=== PATIENT | female | born 1995 | race Hispanic/Latino ===

== ENCOUNTER 2019-09-12 23:25 | Emergency (ER) | payer SELFPAY ==
[2019-09-13] MEDS ORDERED: Acetaminophen 500 MG TAB ONE (00:07)
== END 2019-09-13 00:20 | disposition home or self-care (01) ==
LOC: ERS 23:25
DX: J10.1 Influenza due to other identified influenza virus with other respiratory manifestations (principal)
CPT/HCPCS: 87804; 99283

== ENCOUNTER 2020-07-21 15:02 | Inpatient (IN) | payer SELFPAY ==
[2020-07-21] MEDS ORDERED: hydrALAZINE 20 MG/ML VIAL SLOW IVP PRN (15:35)
--- NOTE | 2020-07-21 16:28 | ULT ---
US Gallbladder RUQ History: Right upper quadrant pain. 32 weeks Comparison: None. Findings: Real-time grayscale and color evaluation right upper quadrant of the abdomen was performed. Mild diffuse increased hepatic echotexture. Portal vein is patent antegrade flow. Common bile duct is normal measuring 3 mm. No cholelithiasis or cholecystitis. Right kidney measures 9.2 x 5 x 5 cm with mild right hydronephros is. heart rate documented at 173 bpm. Impression: Mild right-sided hydronephrosis. No cholelithiasis or cholecystitis.
[2020-07-21 16:38] LABS: #Lymphocytes 0.6 thou/uL (1.20-3.40); #Monocytes 0.3 thou/uL (0.11-0.59); #Neutrophils 5.8 thou/uL (1.40-6.50); %Basophils 0.2 % (0.0-1.0); %Eosinophils 0.1 % (0.0-10.0); %Lymphocytes 9.1 % (21.0-51.0); %Monocytes 4.1 % (0.0-10.0); %Neutrophils 86.5 % (42.0-75.0); Hemoglobin 11.3 g/dL (12.0-16.0); Mean Corpuscular HGB CONC 34.2 g/dL (32.0-36.0); Mean Corpuscular Hemoglobin 30.7 pg (27.0-31.0); Mean Corpuscular Volume 89.7 fL (78.0-98.0); Mean Platelet Volume 6.6 fL (7.4-10.4); Platelet Count 226 thou/uL (130-400); RBC Distribution Width 11.2 % (11.5-14.5); Red Blood Cell (RBC) Count 3.69 mill/uL (4.20-5.40); White Blood Cell (WBC) Count 6.7 thou/uL (4.8-10.8)
[2020-07-21 16:42] LABS: Bacteria/HPF None Seen HPF (None Seen); Bilirubin Negative (Negative); Blood, Urine Negative (Negative); Clarity Clear (Clear); Glucose, Urine (Dipstick) Normal (Negative); Ketone, Urine Negative (Negative); Leukocyte Negative Leu/uL (Negative); Nitrite Negative (Negative); Protein, Urine (Dipstick) 10 mg/dL (Neg-Trace); RBC/HPF None Seen HPF (0-3); Specific Gravity, Urine 1.012 (1.002-1.036); Squamous Epithelial 0-3 HPF (0-3); WBC/HPF 0-3 HPF (0-3)
[2020-07-21 16:43] LABS: Urine Culture Reflex No No
[2020-07-21 16:51] VITALS: BMI 19.3
[2020-07-21] MEDS ORDERED: Acetaminophen 500 MG TAB PO SCH (17:00)
[2020-07-21 17:01] LABS: ALT (SGPT) 14 U/L (8-55); AST (SGOT) 31 U/L (5-34); Albumin 3.3 g/dL (3.5-5.0); Alkaline Phosphatase 170 U/L (40-110); Anion Gap 14 mmol/L (10-20); BUN (Urea Nitrogen) 4 mg/dL (7.0-18.7); Bilirubin, Total 0.8 mg/dL (0.2-1.2); Calc. Creatinine Clearance 84 mL/min (70-130); Calcium 8.3 mg/dL (7.8-10.44); Carbon Dioxide 17 mmol/L (22-29); Chloride 106 mmol/L (98-107); Estimated GFR-MDRD Greater than 90; Globulin 3.6 g/dL (2.4-3.5); Glucose 109 mg/dL (70-105); Potassium 3.6 mmol/L (3.5-5.1); Protein, Total 6.9 g/dL (6.0-8.3); Sodium 133 mmol/L (136-145)
--- NOTE | 2020-07-21 17:01 | PDOC.LDHP ---
Labor and Delivery H&P Chief complaint: abdominal pain HPI: 24 y/o at 30w1d, patient of Dr. Montoya, presents with abdominal pain since 9am. Pain constant and diffuse, but worse in RUQ. She also has felt chills, shortness of breath, and overall discomforts. She had COVID-19 about 6 months ago. Also received a flu shot. Denies VB, LOF, ctx, or decreased FM. ROS neg for HEENT, CV, pulm, gi, gu, neuro, psych, skin, musculoskeletal or constitutional symptoms other than mentioned above. OB History Details: 2 prior term SVDs Current complications: none Past Medical History: None Current medications: pre-rodolfo vitamins Previous surgical history: none Allergies/Adverse Reactions: Allergies Allergy/AdvReac Type Severity Reaction Status Date / Time No Known Allergies Allergy Unverified 07/21/20 16:18 Social history: none - Physical Exam Abnormal vital signs: tachycardia, tachypnea, febrile at 102.9 General: other (appears ill) Heart: other (tachycardic) Lungs: other (coarse breath sounds) Abdomen: other (gravid, diffusely TTP) Extremeties: no edema FHT: category 2 (190s, mod variability, + accels, no decels) [place] contractions every: None - Assessment 24 y/o at 30w1d with sepsis of unknown origin. status reassuring at this time. - Plan -: Admit for sepsis workup CBC, CMP, UA, lactic acid, blood cultures x 2; COVID-19, Influenza swabs pending RUQ ultrasound normal - no e/o cholecystitis, physiologic hydronephrosis. Tylenol for fever. Dr. Montoya notified. Will continue to closely monitor.
[2020-07-21 17:27] LABS: Lactic Acid 2.2 mmol/L (0.5-2.2)
[2020-07-21] MEDS: Piperacillin/Tazobactam 3.375 GM in Sodium Chloride 0.9% 100 ML IVPB SCH (18:26)
[2020-07-21 18:39] LABS: SARS-CoV-2 NAA Rapid Test Not Detected (NotDetected)
[2020-07-21] MEDS: Vancomycin HCl 750 MG in Sodium Chloride 0.9% 250 ML 250 ML IVPB SCH (20:37)
--- NOTE | 2020-07-21 20:46 | PDOC.BPN ---
- Brief Progress Note Encounter Date: 07/21/20 Encounter Time: 20:44 All tests so far are negative for a source of infection. Patient with neck and back pain. Febrile again and tachycardic. Will get chest x-ray and consult medicine for further evaluation of sepsis.
--- NOTE | 2020-07-21 21:09 | RAD ---
RADIOGRAPH CHEST 2 VIEWS: DATE: 07/21/2020 HISTORY: 24-year-old female with sepsis and dyspnea FINDINGS: There is no airspace density, pulmonary edema, pleural effusion, pneumothorax, or cardiomegaly. IMPRESSION: No acute cardiopulmonary findings.
[2020-07-21] MEDS ORDERED: Lactated Ringer's 1,000 ML IV SCH (22:00)
[2020-07-21] MEDS ORDERED: diphenhydrAMINE 50 MG/ML VIAL IVP SCH (22:30)
[2020-07-21] MEDS: Betamet Acet/Betamet Na Ph 30 MG/5 ML VIAL IM SCH (22:41)
[2020-07-21] MEDS: Acetaminophen 500 MG TAB PO SCH (22:41)
[2020-07-21] MEDS: Lactated Ringer's 1,000 ML IV SCH (22:49)
[2020-07-21] MEDS ORDERED: metroNIDAZOLE 500 MG TAB PO SCH (23:30)
[2020-07-22] MEDS: Piperacillin/Tazobactam 3.375 GM in Sodium Chloride 0.9% 100 ML IVPB SCH ×4 (00:15→19:15)
[2020-07-22 01:06] LABS: Lactic Acid 2.5 mmol/L (0.5-2.2)
[2020-07-22] MEDS: Acetaminophen 500 MG TAB PO SCH ×2 (04:27→10:02)
[2020-07-22] MEDS: Lactated Ringer's 1,000 ML IV SCH (05:21)
[2020-07-22 07:10] LABS: Lactic Acid 1.7 mmol/L (0.5-2.2)
--- NOTE | 2020-07-22 07:14 | PDOC.BPN ---
- Brief Progress Note Encounter Date: 07/22/20 Encounter Time: 06:59 Patient was comfortable for the last few hours but has started complaining of neck pain again. Abdominal pain has improved. No other complaints. Tachycardia improved around 2am. O: Vital Signs - Most Recent BP: 89/51 P: 94 R: 20 T: 97.8 Gen - AAO, NAD Heart - RRR Pulm - CTAB, no wheezes, rales, or rhonchi Abd - gravid, soft, NTTP Neck - tender to palpation and movement Labs - Lactic Acid - 2.2 --> 2.5 --> pending CBC - repeat pending A/P: 24 y/o at 30w2d with infection of unknown source. Vital signs are improving, no longer tachycardic or tachypneic. 1. Sound consulted - spoke with Dr. Olson, no recommendations. 2. Repeat labs pending 3. NST reactive 4. Celestone x 1, next dose tonight 5. Continue to monitor.
[2020-07-22 07:30] LABS: Hemoglobin 9.5 g/dL (12.0-16.0); Mean Corpuscular HGB CONC 36.1 g/dL (32.0-36.0); Mean Corpuscular Hemoglobin 32.6 pg (27.0-31.0); Mean Corpuscular Volume 90.4 fL (78.0-98.0); Mean Platelet Volume 6.5 fL (7.4-10.4); Platelet Count 169 thou/uL (130-400); RBC Distribution Width 11.4 % (11.5-14.5); White Blood Cell (WBC) Count 14.9 thou/uL (4.8-10.8)
--- NOTE | 2020-07-22 07:48 | ULT ---
PRELIMINARY REPORT/[facility]/EMERGENCY AFTER HOURS PROCEDURE: EXAM: US Biophysical Profile Without Non-Stress Testing. CLINICAL HISTORY: tachycardia, fever TECHNIQUE: Real-time ultrasound of the maternal pelvis for biophysical profile evaluation with image documentation. COMPARISON: None provided. FINDINGS: Single live intrauterine gestation is noted with a vertex presentation and an anterior plac enta demonstrating a heartbeat of 133 bpm. The JOSE is 9.8 cm BREATHING MOVEMENTS: Score 2/2. BODY MOVEMENTS: Score 2/2. TONE: Score 2/2. QUALITATIVE AMNIOTIC FLUID VOLUME: Within normal limits. 2/2. IMPRESSION: Normal biophysical profile, 04/11. ELECTRONICALLY SIGNED BY: Sal Brooks MD Jul 22, 2020 12:46:59 AM IMAGING CENTER MANAGER FINAL REPORT NONSTRESS BIOPHYSICAL PROFILE: HISTORY: Fever. tachycardia. COMPARISON: None. TECHNIQUE: Nonstress biophysical profile was performed. FINDINGS: Presentation: Vertex. Placenta: Anterior. heart tones: 133 bpm. Amniotic fluid index 9.8 cm. Nonstress biophysical profile: tone 2. breathing 2. movement 2. Amniotic fluid 2. Total score 8 out of 8. IMPRESSION: 1. This report is in agreement with initial report by [facility]. 2. Nonstress biophysical profile score is 8 out of 8. Transcribed Date/Time: 07/22/2020 8:02 AM
[2020-07-22] MEDS ORDERED: Lidocaine 2% 10 ML INJ ONE (08:26)
[2020-07-22 08:30] LABS: Band 57 % (5-11); Lymphocytes 6 % (21-51); MDiff Complete? YES; Metamyelocyte 1 % (0-0); Monocytes 2 % (0-10); Neutrophil 34 % (42-75); Platelet Morphology Comment Appears Adequate; Polychromasia SLIGHT = 2-3 cells (100X) (0-2/hpf); Reflex for Review?? NO; Vacuoles SLIGHT
[2020-07-22] MEDS: Vancomycin HCl 750 MG in Sodium Chloride 0.9% 250 ML 250 ML IVPB SCH ×2 (09:53→20:59)
[2020-07-22] MEDS: metroNIDAZOLE 500 MG TAB PO SCH ×2 (10:02→20:55)
--- NOTE | 2020-07-22 10:36 | PDOC.BPN ---
- Brief Progress Note Encounter Date: 07/22/20 Encounter Time: 10:00 Care was transitioned to our service this am after the patient was determined to be a PNC patient managed by Dr. Moyer. HPI: Patient is a at 30.1wk who presents to L&D triage with complains of frontal headache not worsened by light/noise that radiates down the neck to mid back for the past 2 days. The patient notes a history of fever, chills, fatigue, sternal chest pain worsened with deep breaths that radiates to back, and epigastric/RUQ pain for the past day. Patient has been treating at home with Tylenol. She reports a history of cold sores on the lip with most recent episode occurring 1 week ago, now resolved. She also reports an episode of watery diarrhea and epigastric pain occurring 1 week ago, now resolved, after eating questionable food. She notes dysuria and "grainy feeling" with urination but denies vaginal burning, vaginal pain, vaginal bleeding and vaginal discharge. + FM. No LOF. 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 Surgeries: None FHx: None Physical exam: General: resting comfortably on left side, no acute distress HEENT: PERRL, no facial rash present, TM clear with light reflex, tonsils edematous and erythematous without exudate present Neck: Tender to light touch, no elicitation of pain with movement of neck Throat: anterior edema without palpable lymph nodes, tender to palpation Chest: Nontender Cardiac: RRR, no murmur/rub/gallop Respiratory: Clear to auscultation, no wheezing/crackles, no respiratory distress Abdomen: epigastric and RUQ tenderness, upper uterine tenderness; both with light touch of the skin Genitourinary: Shaved. No lesions present on labia. Speculum exam completed. No vaginal lesions noted. [place] vaginal mucosa with white, clumpy discharge present. Cervix closed, no erythema present. Back: Tenderness to light touch of the skin along spine Extremities: No LE edema Skin: No rash present monitoring: FHT 130s, + accels, no decels, moderate variability Assessment/Plan: Patient presented to triage febrile with tachycardia in 160s and tachypnea in 40s. BP 90s/40s. Tachycardia and tachypnea have now resolved. Initial workup has not revealed source of infection. WBC 14.9 this am, from 6.7; likely elevated due to 1 dose of steroids. LA downtrending from 2.5. UA negative. Flu negative. CXR negative. RUQ negative for cholelithiasis or cholecystitis. + sally and BV on VP3. Given 6 L of fluids over past 24 hours, currently on LR @ 125 for maintanence. Receiving zosyn (07/21), vanc (07/21) and flagyl (07/22). BCx pending. LP completed this am. Will order CSF studies for protein, glucose, cell count, gram stain and CSF culture. Will also order HSV 1/2, cryptococcus, TB and toxoplasmosis study to investigate possible viral vs. fungal meningitis. Will obtain procal, mononucleosis test and HSV IgM/IgG. Continue current antibiotic regiment. No need for additional medications at this time. Continue Tylenol for fever/pain. Continue continuous monitoring. Will complete celestone course this evening with 2nd dose. F/u blood cultures, prelim negative. Discussed plan with Dr. Good.
[2020-07-22 10:42] LABS: CSF, Glucose 48 mg/dl (40-70); CSF, Protein 21 mg/dL (15-40)
[2020-07-22 11:12] LABS: Color Of CSF Supernatant COLORLESS (Colorless); Tube # 1; Unspun CSF Color COLORLESS (Colorless)
[2020-07-22 11:26] LABS: CSF Source CSF; Clarity Hazy (Clear); Tube # 4
[2020-07-22 11:46] LABS: MONO NEGATIVE CONTROL ZONE White (Negative) (White); MONO POSITIVE CONTROL Pink Line (Positive) (PINK/RED); Mononucleosis NEGATIVE (NEGATIVE)
[2020-07-22 12:00] LABS: Cell Count Non Hematic 22 %; Lymphocytes 2 %; Segmented Neutrophils 76 %
[2020-07-22 13:03] LABS: CSF Source CSF; Clarity Clear (Clear); Tube # 3
[2020-07-22] MEDS: Betamet Acet/Betamet Na Ph 30 MG/5 ML VIAL IM SCH (22:45)
[2020-07-23] MEDS: Piperacillin/Tazobactam 3.375 GM in Sodium Chloride 0.9% 100 ML IVPB SCH ×3 (01:39→12:08)
[2020-07-23] MEDS: Acetaminophen 500 MG TAB PO SCH ×4 (04:17→11:17)
--- NOTE | 2020-07-23 07:05 | PDOC.OBAPN ---
FMR OB AP PN: Sub - Interval History Hospital Day: 2 Chief Complaint: fever Indentification: 24yo @ 30.3 by 20.3wk sono Interval History: SALVADOR resolved,Mild epigastric pain,Tolerating PO,no n/v. Pleuritic CP,no SOB FMR OB AP PN: Obj - Maternal Vital signs: BP: 93/56 HR: 93 RR: 20 Tmax: 97.7 Pox: 99% on RA Wt: 39kg - Heart Tones Baseline: 120 Variability: moderate Acceleration: present Deceleration: absent Category: category 1 [place] contractions every: 6min FMR OB AP PN: Exam - Physical Exam General: NAD, awake, alert and oriented HEENT: normocephalic and atraumatic, EOMI, MMM, conjunctiva clear Neck: supple, trachea midline Chest: other (mild tenderness to palpation) Heart: RRR, normal S1/S2, no murmurs/rubs/gallops, pulses present, no edema General: CTAB, no respiratory distress, good air movement, no rales/rhonchi, no wheezing, no retractions Abdomen: soft, gravid, bowel sound present, other (mild epigastric tenderness) Musculoskeletal: other (mild lumbar spinal tenderness to palpation) Neurological: no focal deficit Skin: no rash Psychiatric: normal mood and affect FMR OB AP PN: Data - Labs Lab results: Laboratory Results - last 24 hr 07/22/20 07/22/20 07/22/20 06:48 06:48 09:10 WBC 14.9 H RBC 2.90 L Hgb 9.5 L Hct 26.2 L MCV 90.4 MCH 32.6 H MCHC 36.1 H RDW 11.4 L Plt Count 169 MPV 6.5 L Neutrophils % (Manual) 34 L Band Neuts % (Manual) 57 H Lymphocytes % (Manual) 6 L Monocytes % (Manual) 2 Metamyelocytes % (Man) 1 H WBC Morphology SLIGHT Plt Morphology Comment Appears Adequate Polychromasia SLIGHT = 2-3 cells Lactic Acid 1.7 Procalcitonin Fluid Source Fluid Tube Number Fluid Color Fluid Clarity Fluid Seg Neutrophil % Fluid Lymphocytes % Non-Hematological % CSF Tube Number 1 CSF Color COLORLESS CSF Supernatant Color COLORLESS CSF RBC (Auto) CSF Total Nucleated Auto CSF Glucose 48 CSF Total Protein 21 Monoscreen 07/22/20 07/22/20 07/22/20 09:10 09:10 11:33 WBC RBC Hgb Hct MCV MCH MCHC RDW Plt Count MPV Neutrophils % (Manual) Band Neuts % (Manual) Lymphocytes % (Manual) Monocytes % (Manual) Metamyelocytes % (Man) WBC Morphology Plt Morphology Comment Polychromasia Lactic Acid Procalcitonin 5.37 Fluid Source CSF CSF Fluid Tube Number 4 3 Fluid Color [place] H Colorless Fluid Clarity [place] H Clear Fluid Seg Neutrophil % 76 H* Fluid Lymphocytes % 2 Non-Hematological % 22 CSF Tube Number CSF Color CSF Supernatant Color CSF RBC (Auto) 5949 3 CSF Total Nucleated Auto 18 2 CSF Glucose CSF Total Protein Monoscreen 07/22/20 11:33 WBC RBC Hgb Hct MCV MCH MCHC RDW Plt Count MPV Neutrophils % (Manual) Band Neuts % (Manual) Lymphocytes % (Manual) Monocytes % (Manual) Metamyelocytes % (Man) WBC Morphology Plt Morphology Comment Polychromasia Lactic Acid Procalcitonin Fluid Source Fluid Tube Number Fluid Color Fluid Clarity Fluid Seg Neutrophil % Fluid Lymphocytes % Non-Hematological % CSF Tube Number CSF Color CSF Supernatant Color CSF RBC (Auto) CSF Total Nucleated Auto CSF Glucose CSF Total Protein Monoscreen NEGATIVE FMR OB AP PN: A/P - Problem List (1) Status: Acute (2) Sepsis Status: Acute Code(s): A41.9 - SEPSIS, UNSPECIFIED ORGANISM Disposition: 24yo @ 30.3 by 20.3wk gabriella presents for sepsis due to unknown source #Sepsis 2/2 unknown source - UA clean, BCx NGTD - CSF glucose 48, protein 21, WBC 18, Gram stain negative - Cryptococcus negative, mono negative, covid/flu negative - Toxo PCR, HSV PCR, HSV IgG and IgM, Enterovirus, and CSF Cx Pending - Ruled out meningitis, UTI, PNA. Low suspicion for bacteremia - RVP ordered for today, suspect likely viral URI vs gastroenteritis with h/o GI sxs last week (since resolved) - mild chest pain this morning, MSK, reproducible - HR stable, O2 stable, no history of recent travel/immobilization and no history of VTE - low suspicion for PE, encouraged ambulation and will monitor - On Vanc and Zosyn, will continue until cultures negative at 48 hours. - Procal 5.37 - Am labs pending #BV - On flagyl #Deepika vulvovaginitis - Will start monostat after d/c of abx #History of HSV oral lesions - states ulcers last week, since resolved - checking antibodies - CSF studies negative for viral meningitis however PCR pending #SIUP - BPP 04/11 at admission, Cat 1 FHT - Ctx q6min, feels about q10min - s/p Betamethasone x2 for lung protection - cont monitoring PCP: [facility] - [facility] IVF: LR @ 125cc/hr - will d/c VTE: SCDs/Ambulation Dispo: Pending cultures. Suspect viral. Will d/c antibiotics at 48 hours if no source identified and monitor. Suspect discharge next 1-2 days pending clinical course. Discussion: Date/Time: 07/23/20 0703 This H&P was discussed with Dr. Good who agrees with the above documentation and plan. Addendum - Attending - Attending Attestation Date/Time: 07/24/20 174 I personally evaluated the patient and discussed the management with Dr. Watts I agree with the History, Examination, Assessment and Plan documented above with any addition or exceptions noted below. PT doing better this AM. Reports headache and neck pain has resolved. She continues to have muscle aches in chest, mid back , and abdomen. Pt remains afebrile with normal vitals on abx. labs pending. Viral syndrome suspected.
[2020-07-23 08:40] LABS: #Lymphocytes 1.4 thou/uL (1.20-3.40); #Monocytes 0.3 thou/uL (0.11-0.59); #Neutrophils 13.6 thou/uL (1.40-6.50); %Basophils 0.1 % (0.0-1.0); %Eosinophils 0.1 % (0.0-10.0); %Lymphocytes 8.9 % (21.0-51.0); %Monocytes 1.6 % (0.0-10.0); %Neutrophils 89.3 % (42.0-75.0); Hemoglobin 8.6 g/dL (12.0-16.0); Mean Corpuscular HGB CONC 33.4 g/dL (32.0-36.0); Mean Corpuscular Volume 92.7 fL (78.0-98.0); Mean Platelet Volume 7.2 fL (7.4-10.4); Platelet Count 163 thou/uL (130-400); RBC Distribution Width 11.6 % (11.5-14.5); Red Blood Cell (RBC) Count 2.76 mill/uL (4.20-5.40); White Blood Cell (WBC) Count 15.2 thou/uL (4.8-10.8)
[2020-07-23 09:02] LABS: ALT (SGPT) 33 U/L (8-55); AST (SGOT) 67 U/L (5-34); Albumin 2.7 g/dL (3.5-5.0); Alkaline Phosphatase 125 U/L (40-110); Anion Gap 13 mmol/L (10-20); BUN (Urea Nitrogen) 9 mg/dL (7.0-18.7); Bilirubin, Total 1.7 mg/dL (0.2-1.2); Calc. Creatinine Clearance 88 mL/min (70-130); Calcium 8.4 mg/dL (7.8-10.44); Carbon Dioxide 17 mmol/L (22-29); Chloride 112 mmol/L (98-107); Estimated GFR-MDRD Greater than 90; Globulin 2.9 g/dL (2.4-3.5); Glucose 101 mg/dL (70-105); Potassium 3.7 mmol/L (3.5-5.1); Protein, Total 5.6 g/dL (6.0-8.3); Sodium 138 mmol/L (136-145)
[2020-07-23] MEDS: Vancomycin HCl 750 MG in Sodium Chloride 0.9% 250 ML 250 ML IVPB SCH (09:19)
[2020-07-23] MEDS ORDERED: Calcium Carbonate 500 MG ChewTAB PO PRN (09:37)
[2020-07-23] MEDS: metroNIDAZOLE 500 MG TAB PO SCH ×2 (09:42→22:45)
[2020-07-23 09:59] LABS: Iron 11 ug/dL (50-170); Iron Binding Capacity, Total 466 mcg/dL (265-497)
[2020-07-23] MEDS: Lactated Ringer's 1,000 ML IV SCH ×3 (11:18→14:45)
--- NOTE | 2020-07-23 11:42 | PDOC.BPN ---
- Brief Progress Note Encounter Date: 07/23/20 Encounter Time: 11:40 Called by antepartum nurse that pt was having ctx. Came and examined pt at bedside. Chest pain resolved. No SALVADOR, vision changes, SOB, n/v. Good movement. No vaginal bleeding or LOF. Ctx q3-4min on FHT. Cat 1 with accels, no deccels, baseline 110. Feeling more pressure. SVE closed/thick/high. Will restart IVF @ 100cc/hr. Transfer back to L&D for monitoring and continuous FHT. Above plan discussed with Dr. Fontenot who agreed with plan.
[2020-07-23 14:12] VITALS: BP 101/59; TEMP 97.7
[2020-07-23] MEDS ORDERED: Acetaminophen 325 MG TAB PO PRN (15:52)
--- NOTE | 2020-07-23 15:56 | PDOC.BPN ---
- Brief Progress Note Encounter Date: 07/23/20 Encounter Time: 15:53 Reviewed studies resulted thus far. BCx NG @ 48 hours. CSF gram stain negative, Cx NG at 24 hours. RVP negative. Procal trending down. No source of bacterial infection. Likely viral gastroenteritis vs URI. Patient resting comfortably and overall improved. Ctx have stopped since transfer back to L&D. Cat 1 strip with accels, no deccels, no ctx, moderate variability, baseline 120. Will d/c vanc and zosyn. Change tylenol to prn. Cont to monitor for worsening of sxs or recurrence of fever. Plan discussed with patient at bedside who voiced understanding and agreement. Above plan discussed with Dr. Fontenot who agreed with plan.
[2020-07-23 17:55] LABS: Amphetamine Not Detected (NotDetected); Barbiturates Screen Not Detected (NotDetected); Benzodiazepine Screen Not Detected (NotDetected); Cocaine Metabolite Screen Not Detected (NotDetected); Medtox Control Line Valid? VALID (VALID); Medtox Reader # READER 1; Methadone Not Detected (NotDetected); Methamphetamine Not Detected (NotDetected); Opiate Screen Not Detected (NotDetected); Oxycodone Screen Not Detected (NotDetected); Phencyclidine (PCP) Not Detected (NotDetected); THC/Cannabinoid Screen Not Detected (NotDetected); Tricyclic Screen Not Detected (NotDetected)
[2020-07-24 06:51] LABS: #Lymphocytes 1.2 thou/uL (1.20-3.40); #Monocytes 0.2 thou/uL (0.11-0.59); #Neutrophils 8.3 thou/uL (1.40-6.50); %Basophils 0.2 % (0.0-1.0); %Eosinophils 0.1 % (0.0-10.0); %Monocytes 2.3 % (0.0-10.0); %Neutrophils 85.4 % (42.0-75.0); Mean Corpuscular HGB CONC 34.1 g/dL (32.0-36.0); Mean Corpuscular Hemoglobin 31.6 pg (27.0-31.0); Mean Corpuscular Volume 92.8 fL (78.0-98.0); Mean Platelet Volume 7.2 fL (7.4-10.4); Platelet Count 152 thou/uL (130-400); RBC Distribution Width 11.6 % (11.5-14.5); Red Blood Cell (RBC) Count 2.53 mill/uL (4.20-5.40); White Blood Cell (WBC) Count 9.8 thou/uL (4.8-10.8)
--- NOTE | 2020-07-24 06:59 | PDOC.OBAPN ---
FMR OB AP PN: Sub - Interval History Hospital Day: 3 Indentification: 24yo @ 30.4 by 20.3wk sono Interval History: Doing well, overall improved, No SALVADOR/CP/SOB/n/v/fever/chills/ctx/VB/LOF FMR OB AP PN: Obj - Maternal Vital signs: BP: 111/52 HR: 84 RR: 18 Tmax: 97.8 Pox: 100% on RA Wt: 39kg - Heart Tones Baseline: 120 Variability: moderate Acceleration: present Deceleration: absent Category: category 1 [place] contractions every: none FMR OB AP PN: Exam - Physical Exam General: NAD, awake, alert and oriented HEENT: EOMI, MMM, conjunctiva clear Neck: supple, trachea midline Chest: non-tender to palpation Heart: pulses present, no edema General: no respiratory distress, no retractions Abdomen: soft, gravid, non-tender Musculoskeletal: FROM in all four extremities Neurological: no focal deficit Skin: no rash Psychiatric: normal mood and affect FMR OB AP PN: Data - Labs Lab results: Laboratory Results - last 24 hr 07/22/20 07/23/20 07/23/20 09:10 08:26 08:26 WBC RBC Hgb Hct MCV MCH MCHC RDW Plt Count MPV Neutrophils % Lymphocytes % Monocytes % Eosinophils % Basophils % Neutrophils # Lymphocytes # Monocytes # Eosinophils # Basophils # Sodium 138 Potassium 3.7 Chloride 112 H Carbon Dioxide 17 L Anion Gap 13 BUN 9 Creatinine 0.60 Estimated GFR (MDRD) Greater than 90 Glucose 101 Calcium 8.4 Iron TIBC % Saturation Ferritin Total Bilirubin 1.7 H Direct Bilirubin AST 67 H ALT 33 Alkaline Phosphatase 125 H Serum Total Protein 5.6 L Albumin 2.7 L Globulin 2.9 Albumin/Globulin Ratio 0.9 L Procalcitonin 3.84 Fluid Diff Path Review Urine Opiates Screen Ur Oxycodone Screen Urine Methadone Screen Ur Propoxyphene Screen Ur Barbiturates Screen Ur Tricyclics Screen Ur Phencyclidine Scrn Ur Amphetamines Screen U Methamphetamines Scrn U Benzodiazepines Scrn U Cocaine Metab Screen U Cannabinoids Screen Drug Screen Comment 07/23/20 07/23/20 07/23/20 08:26 09:32 09:32 WBC 15.2 H RBC 2.76 L Hgb 8.6 L Hct 25.6 L MCV 92.7 MCH 31.0 MCHC 33.4 RDW 11.6 Plt Count 163 MPV 7.2 L Neutrophils % 89.3 H Lymphocytes % 8.9 L Monocytes % 1.6 Eosinophils % 0.1 Basophils % 0.1 Neutrophils # 13.6 H Lymphocytes # 1.4 Monocytes # 0.3 Eosinophils # 0.0 Basophils # 0.0 Sodium Potassium Chloride Carbon Dioxide Anion Gap BUN Creatinine Estimated GFR (MDRD) Glucose Calcium Iron 11 L TIBC 466 % Saturation 2 L Ferritin 94.98 Total Bilirubin Direct Bilirubin AST ALT Alkaline Phosphatase Serum Total Protein Albumin Globulin Albumin/Globulin Ratio Procalcitonin Fluid Diff Path Review Urine Opiates Screen Ur Oxycodone Screen Urine Methadone Screen Ur Propoxyphene Screen Ur Barbiturates Screen Ur Tricyclics Screen Ur Phencyclidine Scrn Ur Amphetamines Screen U Methamphetamines Scrn U Benzodiazepines Scrn U Cocaine Metab Screen U Cannabinoids Screen Drug Screen Comment 07/23/20 07/23/20 07/24/20 09:32 16:20 06:31 WBC 9.8 RBC 2.53 L Hgb 8.0 L Hct 23.5 L MCV 92.8 MCH 31.6 H MCHC 34.1 RDW 11.6 Plt Count 152 MPV 7.2 L Neutrophils % 85.4 H Lymphocytes % 12.0 L Monocytes % 2.3 Eosinophils % 0.1 Basophils % 0.2 Neutrophils # 8.3 H Lymphocytes # 1.2 Monocytes # 0.2 Eosinophils # 0.0 Basophils # 0.0 Sodium Potassium Chloride Carbon Dioxide Anion Gap BUN Creatinine Estimated GFR (MDRD) Glucose Calcium Iron TIBC % Saturation Ferritin Total Bilirubin Direct Bilirubin 1.1 H AST ALT Alkaline Phosphatase Serum Total Protein Albumin Globulin Albumin/Globulin Ratio Procalcitonin Fluid Diff Path Review Urine Opiates Screen Not Detected Ur Oxycodone Screen Not Detected Urine Methadone Screen Not Detected Ur Propoxyphene Screen Not Detected Ur Barbiturates Screen Not Detected Ur Tricyclics Screen Not Detected Ur Phencyclidine Scrn Not Detected Ur Amphetamines Screen Not Detected U Methamphetamines Scrn Not Detected U Benzodiazepines Scrn Not Detected U Cocaine Metab Screen Not Detected U Cannabinoids Screen Not Detected Drug Screen Comment FMR OB AP PN: A/P - Problem List (1) Current Visit: Yes Status: Acute (2) Sepsis Current Visit: Yes Status: Acute Code(s): A41.9 - SEPSIS, UNSPECIFIED ORGANISM Disposition: 24yo @ 30.4 by 20.3wk gabriella presents for sepsis due to unknown source #Sepsis 2/2 unknown source - UA clean, BCx NG @ 48hrs - CSF glucose 48, protein 21, WBC 18, Gram stain negative - Cryptococcus negative, mono negative, covid/flu negative, RVP negative, UDS negative - Toxo PCR, HSV PCR, HSV IgG and IgM, Enterovirus, Quant Gold, and CSF Cx Pending (Cx NGTD) - Ruled out meningitis, UTI, PNA, bacteremia or other bacterial infx - Suspect likely viral URI vs gastroenteritis with h/o GI sxs last week (since resolved) - all sxs resolved this morning, overall much improved - s/p Vanc and Zosyn, off abx since 07/24 PM. Afebrile, sxs continued to improved, and VSS since - Procal 5.37 - Am labs pending #BV - On flagyl #Deepika vulvovaginitis - Will start monostat after d/c of abx #History of HSV oral lesions - states ulcers last week, since resolved - checking antibodies - CSF studies negative for viral meningitis however PCR pending #SIUP - BPP 04/11 at admission, Cat 1 FHT this AM without ctx - ctx on previous days however none since moving back to L&D yesterday. - s/p Betamethasone x2 for lung protection - cont monitoring PCP: [facility] - [facility] IVF: LR @ 100cc/hr - will d/c and monitor, encourage PO hydration VTE: SCDs/Ambulation Dispo: S/p abx. Suspect viral etiology. Will cont to monitor off abx. Possible d/c this PM this tomorrow pending clinical course. Further workup pending. This H&P was discussed with Dr. Fontenot who agrees with the above documentation and plan.
[2020-07-24 07:03] LABS: ALT (SGPT) 54 U/L (8-55); AST (SGOT) 91 U/L (5-34); Albumin 2.6 g/dL (3.5-5.0); Alkaline Phosphatase 111 U/L (40-110); Anion Gap 12 mmol/L (10-20); BUN (Urea Nitrogen) 7 mg/dL (7.0-18.7); Bilirubin, Total 0.5 mg/dL (0.2-1.2); Calc. Creatinine Clearance 100 mL/min (70-130); Calcium 8.1 mg/dL (7.8-10.44); Carbon Dioxide 17 mmol/L (22-29); Chloride 112 mmol/L (98-107); Estimated GFR-MDRD Greater than 90; Globulin 2.7 g/dL (2.4-3.5); Glucose 95 mg/dL (70-105); Potassium 3.4 mmol/L (3.5-5.1); Protein, Total 5.3 g/dL (6.0-8.3); Sodium 138 mmol/L (136-145)
--- NOTE | 2020-07-24 07:04 | EKG ---
Test Reason : Blood Pressure : / mmHG Vent. Rate : 129 BPM Atrial Rate : 129 BPM P-R Int : 134 ms QRS Dur : 086 ms QT Int : 294 ms P-R-T Axes : 085 095 043 degrees QTc Int : 430 ms Sinus tachycardia Rightward axis Borderline ECG No previous ECGs available Confirmed by EDELMIRA AGUILAR MD ([id number]) on 07/24/2020 7:03:33 AM Referred By: MELISSA Confirmed By:EDELMIRA AGUILAR MD
[2020-07-24] MEDS ORDERED: Ferrous Sulfate 325 MG TAB PO SCH (08:00)
[2020-07-24] MEDS: metroNIDAZOLE 500 MG TAB PO SCH (08:57)
[2020-07-24] MEDS: Potassium Chloride 20 MEQ TAB PO SCH (08:58)
[2020-07-24] MEDS ORDERED: Prenatal Vitamin 1 TAB PO SCH (09:00)
[2020-07-24] MEDS ORDERED: FLU VACC QS2020-21(6MOS UP)/PF 60 MCG/0.5 ML SYRINGE IM ONE (15:15)
--- NOTE | 2020-07-25 03:27 | DIS ---
DATE OF ADMISSION: 07/21/2020 DATE OF DISCHARGE: 07/24/2020 RESIDENT: Lj Watts M.D. ADMITTING ATTENDING: Salena Alan M.D. DISCHARGE ATTENDING: Salena Alan M.D. CONSULTS: None. PROCEDURES: 1. Lumbar puncture performed on 07/22/2020. 2. Right upper quadrant ultrasound performed on 07/21/2020, demonstrating mild right-sided hydronephrosis. No cholelithiasis or cholecystitis. 3. Chest x-ray on 07/21/2020 demonstrating no acute cardiopulmonary findings. 4. Biophysical profile performed on 07/21/2020, demonstrating normal biophysical profile 04/11. PRIMARY DIAGNOSES: 1. Sepsis secondary to suspected viral etiology. 2. Single intrauterine . SECONDARY DIAGNOSES: 1. Bacterial vaginosis. 2. Deepika vulvovaginitis. 3. History of HSV oral lesions. DISCHARGE MEDICATIONS: 1. Tylenol 325 mg two tablets p.o. p.r.n. 2. Ferrous sulfate 325 mg p.o. q.a.m. 3. Flagyl 500 mg p.o. b.i.d. 4. vitamin 1 tab p.o. daily. 5. Monistat 7 to begin after completion of antibiotic. HISTORY OF PRESENT ILLNESS AND HOSPITAL COURSE: The patient is a 24-year-old, G3, P2-0-0-2, that on the day of discharge was 30.4 weeks gestational age by 20.3 week sono, who initially presented for abdominal pain, headache, and neck stiffness. She was found to be tachycardic, tachypneic and febrile with normal white count, and thus received a sepsis workup. She was admitted to and for management. Her initial x-ray, right upper quadrant ultrasound, and lab work were unremarkable. She was subsequently fluid resuscitated. Lumbar puncture was performed with clear fluid. Initial CSF studies were negative with a glucose of 48, protein of 21, white blood cells of 18. Gram stain that was negative. She was initially started on vancomycin and Zosyn. Blood cultures were obtained and were no growth at 48 hours at the time of discharge. Her CSF culture was negative at 48 hours at the time of discharge as well. Urinalysis was clean. Monospot negative. COVID, flu, respiratory viral panel all negative as well. Urine drug screen was negative. Cryptococcus antigen was negative. Due to the patient's recent immigration from [facility] four years ago and atypical presentation, an extensive workup was obtained with labs pending at the time of discharge, this included a toxoplasma PCR, HSV PCR, HSV, IgG, IgM, enterovirus PCR, QuantiFERON Gold. However, after 48 hours of negative cultures, the patient was taken off antibiotics as well as IV fluids and monitored over the next 24 hours. Over the next 24 hours, she continued to clinically improve with complete resolution of all of her symptoms. Her vital signs remained stable. She remained afebrile. Initially, the patient also presented with intermittent contractions. A cervical exam was performed, the patient was closed, thick and high. A repeat exam after contractions was unchanged. The patient was given two doses of betamethasone for lung protection at initial presentation. The patient had reassuring BPP that was 8/8 and a heart tracing at the time of discharge that was also reassuring. The patient also found to have BV and started on metronidazole for this. She also found to have candidal vulvovaginitis. Instructed to start on Monistat 7 after completing her antibiotic course. The patient also admitted to a history of oral HSV lesions. 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 However, it appears this is negative with PCR pending at the time of discharge. IgG and IgM were obtained. The patient needs to follow with her primary care provider and may benefit from prophylactic medications starting at 32 weeks until the time of discharge or as indicated. Due to negative workup, the patient clinically improving. Vital signs stable after being off antibiotics for 24 hours. It was determined that the patient can be discharged safely home. The above findings and plan were discussed with the patient and at bedside, voiced agreement understanding, were eager to be discharged home. The patient was instructed to make a followup appointment with her PCP for 1st of next week to review pending lab work. Strict return precautions and labor precautions were given. The patient voiced understanding and agreement with all questions answered. DISPOSITION: Stable. DISCHARGE INSTRUCTIONS: 1. Location: Home. 2. Diet: Regular as tolerated. 3. Activity: As tolerated. 4. Followup: The patient is to follow up with her primary care provider of next week. Job ID: [id number]
[2020-07-25 06:14] LABS: QuantiFERON-TB Gold Plus Indeterminate (Negative)
[2020-07-25 07:15] LABS: HSV-2 IgG Type Specific Less than 0.91 index (0.00-0.90)
== END 2020-07-24 15:00 | disposition home or self-care (01) | DRG 831 ==
LOC: L&D/OP 15:02 → L&D 17:08 → 3SW 07-23 09:54 → L&D 07-23 14:44
PROVIDERS: ADMIT Family Medicine; ATTEND Family Medicine
DX: O98.813 Other maternal infectious and parasitic diseases complicating pregnancy, third trimester (principal); A41.89 Other specified sepsis; O23.593 Infection of other part of genital tract in pregnancy, third trimester; Z3A.30 30 weeks gestation of pregnancy; N76.0 Acute vaginitis; Z20.828 Contact with and (suspected) exposure to other viral communicable diseases; B37.3 Candidiasis of vulva and vagina; Z86.19 Personal history of other infectious and parasitic diseases; Z23 Encounter for immunization
CPT/HCPCS: 36415; 59025; 71046; 76705; 76819; 80053; 80306; 81001; 82248; 82728; 82945; 83540; 83550; 83605; 84145; 84157; 85007; 85025; 85027; 85060; 86308; 86480; 86612; 86635; 86694; 86695; 86696; 86698; 87040; 87070; 87081; 87205; 87480; 87498; 87510; 87529; 87633; 87660; 87798; 87804; 87899; 89051; 93005; 93010; 99285; J0702; J1200; J2543; J3370; J3490; J7050; U0002

== ENCOUNTER 2020-08-29 09:33 | Day surgery (SDC) | payer SELFPAY ==
[2020-08-29 10:15] VITALS: BMI 19.1
[2020-08-29] MEDS ORDERED: hydrALAZINE 20 MG/ML VIAL SLOW IVP PRN (10:23)
--- NOTE | 2020-08-29 10:36 | PDOC.FPROB ---
FMR OB H&P: HPI - History of Present Illness Indentification: 24 y/o @ 35.5 wga dated by 20.3 wk sono. History of Present Illness: Pt is an OB pt at [facility] clinic. She had concern for decreased movement at [facility] and was sent over for OB triage and evaluation. Today however she is feeling baby move, denies LOF, contractions, urinary symptoms, CP/SOB, [place] and blurry vision. Primary Care Physician: PNC: João FMR OB H&P: Current - Care : 3 Para: 2 Due date: 09/28/20 Dating Criteria: 20.3wk sono - OB Labs Blood type: O RH: positive Antibody Screen: negative HIV: negative RPR: negative HepBsAg: negative Rubella: immune Gonorrhea: negative Chlamydia: negative Pap Smear: WNL 06/2020 FMR OB H&P: History - Past Medical History PMH: -None - OB History OB History: #1: term, #2: term, - Surgical History Sx History: -None - Social History Social History: No smoking, alcohol, tobacco. - Family History Family History: -Non contributory FMR OB H&P: Medications - Current Home Medications: Medication Instructions Recorded Confirmed Type Acetaminophen [Tylenol] 2 tab PO PRN PRN 07/21/20 08/29/20 History Docusate [Colace] 100 mg PO DAILY #30 cap 07/24/20 08/29/20 Rx Ferrous Sulfate [Feosol] 325 mg PO QAM-WM 30 Days #30 tab 07/24/20 08/29/20 Rx Vitamin 1 tab PO DAILY tab 07/24/20 08/29/20 Rx Allergies/Adverse Reactions: Allergies Allergy/AdvReac Type Severity Reaction Status Date / Time No Known Allergies Allergy Verified 08/29/20 10:29 FMR OB H&P: ROS - Review of Systems General: denies: fever/chills, fatigue Eyes: denies: vision changes ENT: denies: nasal congestion, rhinorrhea, sore throat Cardiovascular: denies: chest pain, palpitation Respiratory: denies: cough, congestion, shortness of breath Gastrointestinal: denies: abdominal pain, indigestion, bloating, diarrhea, constipation Genitourinary (Female): denies: incontinence, dysuria, hematuria, polyuria, vaginal pain, vaginal bleeding, vaginal pressure Musculoskeletal: denies: pain FMR OB H&P: Vital Signs - Maternal Vital signs: BP: 129/71; HR: 67 - Heart Tones Baseline: 150 Variability: moderate Acceleration: present Deceleration: absent Category: category 1 [place] contractions every: None seen FMR OB H&P: Physical Exam - Physical Exam General: NAD, awake, alert and oriented HEENT: normocephalic and atraumatic, grossly normal vision, grossly normal hearing Neck: supple Heart: RRR, normal S1/S2, no murmurs/rubs/gallops General: CTAB, no respiratory distress, good air movement, no rales/rhonchi, no wheezing, no retractions Abdomen: soft, gravid Musculoskeletal: FROM in all four extremities Skin: capillary refill <2 seconds Psychiatric: intact recent and remote memory, good judgement and insight, normal mood and affect FMR OB H&P: A/P Disposition: Pt is a 24 y/o F at 35.5 wga dated by 20.3 wk sono who presents for further evaluation for decreased movement ##sIUP in third trimester -at 35.5 MELIZA 09/28/2020 -anatomy sono at 20.3 wk had hadlock of 57% -maternal labs have been negative -FHT: FHR 150s, accels noted, no decels noted, no ctx noted -will order BPP today as pt has had recent growth and does not need this today ##Anemia of -has been taking iron and PNV supplementation -following up with PNC ##Hx of UTI in -E.coli UTI was txt 2M ago -no urinary sxs today Dispo: NST reassuring. BPP pending prior to dc. Addendum: BPP was 8/8 and JOSE was 10.2. Pt has f/u PNC appointment on 09/01 and pt was told to keep this appt. Return precautions given. Will discharge and f/u at clinic. Discussed with Dr. Villafana before discharge. Discussion: Date/Time: 08/29/20 1034 This H&P was discussed with Dr. Villafana who agree with the above documentation and plan. Addendum - Attending - Attending Attestation Date/Time: 08/29/20 1140 I personally evaluated the patient and discussed the management with Dr. Giles I agree with the History, Examination, Assessment and Plan documented above with any addition or exceptions noted below- 24 yo @ 35 5/7 weeks by 20 week USG here for BPP/NST due to IUGR based on 34 week USG which showed EFW=3%. (+) FM. Denies ctx, LOF. BPP/NST 06/13. D/c home and f/u as scheduled at [facility] on Monday.
--- NOTE | 2020-08-29 11:28 | ULT ---
LIMITED OBSTETRICAL ULTRASOUND FOR BIOPHYSICAL PROFILE INDICATION: Intrauterine growth restriction TECHNIQUE: Grayscale, M-mode Doppler, color Doppler and spectral Doppler images were obtained. Biophy sical profile was submitted by the certified histologic technician. Imaging is focused on the clinical indication. COMPARISON: Prior exam dated July 22, 2020 GESTATION: Number of gestations: Single. Presentation: Cephalic. heart rate: 128 bpm. Placental location: Anterior Previa: No evidence for previa. Cervical length: Not measured and not well seen JOSE: 10.4 cm. Biophysical profile: tone: 2 out of 2. breathin out of 2 movements: 2 out of 2 Amniotic fluid level: 2 out of 2 IMPRESSION: 1. Biophysical profile of 8 out of 8
== END 2020-08-29 12:09 | disposition home health service (06) ==
LOC: L&D/OP 09:33
PROVIDERS: ATTEND Family Medicine
DX: O36.8130 Decreased fetal movements, third trimester, not applicable or unspecified (principal); O36.5930 Maternal care for other known or suspected poor fetal growth, third trimester, not applicable or unspecified; O99.013 Anemia complicating pregnancy, third trimester; D64.9 Anemia, unspecified; Z3A.35 35 weeks gestation of pregnancy
CPT/HCPCS: 76819; 99282

== ENCOUNTER 2020-09-02 20:08 | Inpatient (IN) | payer OTHER, SELFPAY ==
[~2020-09-02 20:08] MED LIST: Bupivacaine HCl 0.25%/Epi 0.0005/PF 10 ML VIAL FS ONE
--- NOTE | 2020-09-02 21:26 | PDOC.FPROB ---
FMR OB H&P: HPI - History of Present Illness Chief Complaint: Sent from [facility] for JOSE 3 and 2/8 BPP History of Present Illness: Patient is a 24 yo @ 36.2W EGA by 20.3W US who presented after being sent over from [facility] due to an JOSE of 3 and BPP of 2/8 today. Patient reports that she has no concerns, states baby is moving a lot, denies gush of fluid, vaginal discharge, vaginal bleeding, but notes rare feeling of contractions. Denies fever/chills, vision changes, chest pain, sob. Primary Care Physician: EMMA Moyer FMR OB H&P: Current - Care : 3 Para: 2001 Gestational age: 36.2 weeks Due date: 09/18/2020 Dating Criteria: 20.3 week US - OB Labs Blood type: O RH: positive Antibody Screen: negative HIV: negative RPR: negative HepBsAg: negative Rubella: immune Gonorrhea: negative Chlamydia: negative Pap Smear: NILM 05/2020 1 hour gtt: 116 GBS: unknown H&H: 10.1 / Hct: 29.4 Platelets: 295 - Anatomy Survey Anatomy survey: grossly normal - Additional Ultrasound Additional: Growth US 08/30/2020: Hadlock 3.1%, EFW 1857 FMR OB H&P: History - Past Medical History PMH: Iron Def Anemia, Seasonal Allergies - OB History OB History: , both deliveries at term, no complications Deepika Vaginitis: treated, resolved Varicela NonImmune Incomplete Care Ecoli bacteria: completed treatement. Asymptomatic. PATRICIA at OV. 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 - Surgical History Sx History: none - Social History Social History: no smoking, alcohol or drug use - Family History Family History: none FMR OB H&P: Medications - Current Home Medications: Medication Instructions Recorded Confirmed Type Acetaminophen [Tylenol] 2 tab PO PRN PRN 07/21/20 08/29/20 History Docusate [Colace] 100 mg PO DAILY #30 cap 07/24/20 08/29/20 Rx Ferrous Sulfate [Feosol] 325 mg PO QAM-WM 30 Days #30 tab 07/24/20 08/29/20 Rx Vitamin 1 tab PO DAILY tab 07/24/20 08/29/20 Rx Allergies/Adverse Reactions: Allergies Allergy/AdvReac Type Severity Reaction Status Date / Time No Known Allergies Allergy Verified 09/03/20 00:45 FMR OB H&P: ROS - Review of Systems General: denies: fever/chills, weight/appetite/sleep changes Eyes: denies: eye pain, vision changes ENT: denies: nasal congestion, rhinorrhea Cardiovascular: denies: chest pain, palpitation, edema Respiratory: denies: cough, congestion, shortness of breath Gastrointestinal: denies: abdominal pain, nausea, vomiting, diarrhea, constipation Genitourinary (Female): reports: contractions. denies: incontinence, dysuria, hematuria, vaginal discharge, vaginal bleeding Musculoskeletal: denies: pain, stiffness Neurologic: denies: numbness, syncope Integumentary: denies: itching, rash FMR OB H&P: Vital Signs - Maternal Vital signs: BP: 113/70, HR 71, T 98.5 - Heart Tones Baseline: 140 Variability: moderate Acceleration: present Deceleration: absent Category: category 1 [place] contractions every: 10-12 min FMR OB H&P: Physical Exam - Physical Exam General: NAD, awake, alert and oriented HEENT: normocephalic and atraumatic, PERRLA, EOMI, MMM Neck: supple Heart: RRR, normal S1/S2, no murmurs/rubs/gallops General: CTAB, no respiratory distress, good air movement Abdomen: soft, gravid, non-tender Musculoskeletal: normal gait and station, pulses present, FROM in all four extremities Neurological: no focal deficit Skin: no rash Lymphatic: no unusual bruising or bleeding, no purpura Psychiatric: intact recent and remote memory, good judgement and insight, normal mood and affect FMR OB H&P: A/P Discussion: Date/Time: 09/02/202125 Patient is a 24yp @ 36.2W EGA by 20.3W US who presented after being sent over from [facility] due to an JOSE of 3 and BPP of 2/8 today. Oligohydramnios, sIUP JOSE 3 at [facility] today, BPP 2/8 Unable to get records of US at [facility] Sent to [facility] due to US 08/20 showing hadlock of 3.1% FHTs: 140bpm, Cat 1 Strip, + accels, -decels - will get repeat BPP, Growth - will start betamethasone - continuous monitoring - per MFM if patient demonstrates anything less than Cat 1 strip for 60 minutes, begin mIOL GBS Unknown - aware Varicella Nonimmune - Start vaccine series PP Iron deficiency anemia - continue home iron, PNVs Ecoli Bacteruria - completed treatment, asymptomatic, PATRICIA at OV This H&P was discussed with Dr. Stover who is in agreement with the plan. Addendum - Attending - Attending Attestation Date/Time: 09/03/20 1159 I personally evaluated the patient and discussed the management with Dr. Bloom and Manuel. I agree with the History, Examination, Assessment and Plan documented above with any addition or exceptions noted below.
[2020-09-02] MEDS ORDERED: Ondansetron PF 4 MG/2 ML Vial IVP PRN (21:27)
[2020-09-02] MEDS ORDERED: hydrALAZINE 20 MG/ML VIAL SLOW IVP PRN (21:27)
[2020-09-02] MEDS ORDERED: Promethazine HCl 25 MG/ML VIAL IM PRN (21:27)
[2020-09-02] MEDS: Betamet Acet/Betamet Na Ph 30 MG/5 ML VIAL IM SCH (21:54)
[2020-09-02 22:23] LABS: Hemoglobin 10.9 g/dL (12.0-16.0); Mean Corpuscular HGB CONC 32.8 g/dL (32.0-36.0); Mean Corpuscular Hemoglobin 28.8 pg (27.0-31.0); Mean Corpuscular Volume 87.8 fL (78.0-98.0); Mean Platelet Volume 7.4 fL (7.4-10.4); Platelet Count 251 thou/uL (130-400); RBC Distribution Width 13.3 % (11.5-14.5); White Blood Cell (WBC) Count 6.4 thou/uL (4.8-10.8)
[2020-09-02 23:04] LABS: Syphilis Antibody Nonreactive (Nonreactive); Syphilis Antibody Index 0.03 S/CO (<1.00 Non-Reactive)
[2020-09-02 23:09] LABS: HBSAg Index 0.17 S/CO (0-0.99); Hep B Surf Ag Non-Reactive S/CO (NonReactive)
--- NOTE | 2020-09-03 07:09 | ULT ---
LIMITED OB ULTRASOUND BIOPHYSICAL PROFILE: PROVIDED CLINICAL HISTORY: Oligohydramnios. FINDINGS: Comparison 08/29/2020. Single live intrauterine gestation is redemonstrated in vertex presentation. The placenta is anteriorly located without evidence for previa. Amniotic fluid index is 10.8. Feta l heart rate of 140 b.p.m. is documented. Estimated weight is 2397 +/- 355 gm. Estimated gest ational age based on today's examination is 34 weeks 2 days. tone: 2/2. breathin/2. movements: 2/2. Amniotic fluid: 2/2. Total: 8. IMPRESSION: Normal biophysical profile. POS: [place]
--- NOTE | 2020-09-03 07:31 | PDOC.OBAPN ---
FMR OB AP PN: Sub - Interval History Hospital Day: 1 Chief Complaint: Sent by [facility] for possible Oligohydramnios and non-reassuring BPP Indentification: Interval History: No complaints FMR OB AP PN: Obj - Maternal Vital signs: BP: [] HR: [] RR: [] Tmax: [] Pox: []% on [Room Air] Wt: [43.5 kg] - Urine output I&O: Patient states that she has been able to urinate without difficulty since admission. - Heart Tones Baseline: 130 Variability: moderate Acceleration: present Deceleration: variable FMR OB AP PN: Exam - Physical Exam General: NAD, awake, alert and oriented HEENT: normocephalic and atraumatic, PERRLA, EOMI, MMM, conjunctiva clear, no scleral icterus, grossly normal vision, grossly normal hearing, normal nasal mucosa, oropharynx clear Neck: supple, FROM, trachea midline, no LAD Chest: non-tender to palpation Breast: symmetric Heart: RRR, normal S1/S2, no murmurs/rubs/gallops, pulses present, no edema General: CTAB, no respiratory distress, good air movement, no rales/rhonchi, no wheezing, no retractions Abdomen: gravid, non-tender, bowel sound present Musculoskeletal: FROM in all four extremities Neurological: no focal deficit Lymphatic: no unusual bruising or bleeding, no purpura, no petechia, no LAD Psychiatric: intact recent and remote memory, normal mood and affect - Pelvic Exam SVE: Deferred FMR OB AP PN: Data - Labs Lab results: Laboratory Results - last 24 hr 09/02/20 09/02/20 09/02/20 22:11 22:11 22:12 WBC 6.4 RBC 3.80 L Hgb 10.9 L Hct 33.3 L MCV 87.8 MCH 28.8 MCHC 32.8 RDW 13.3 Plt Count 251 MPV 7.4 Syphilis IgG/IgM Ab Hep Bs Antigen Non-Reactive Blood Type O POSITIVE Antibody Screen NEGATIVE 09/02/20 09/02/20 22:12 23:40 WBC RBC Hgb Hct MCV MCH MCHC RDW Plt Count MPV Syphilis IgG/IgM Ab Nonreactive Hep Bs Antigen Blood Type O POSITIVE Antibody Screen FMR OB AP PN: A/P - Problem List (1) Current Visit: No Status: Acute Disposition: Patient is a 24 y/o female @ 36.3W EGA by 20.3W US who presented to L&D after evaluation by [facility] and concern for Olighoydramnios and non-reassuring BPP. #Oligohydramnios, Non-Reassuring BPP, sIUP -JOSE initially reported as 3 at [facility] on 09/02, with a BPP of 2/8 -Unable to obtain records from [facility] - will re-engage today -Initially followed by [facility] due to US 08/20 demonstrating a Hadlock of 3.1% -During initial evaluation, FHTs were 140s with Cat 1 Strip for >1H w/ accels present and no reported decels -s/p 1st dose of Betamethasone for lung maturity - 2nd dose planned for later this evening -Initial report for repeat BPP was 04/11 and JOSE > 5 - will await official read -Initial report for Growth US was Hadlock > 30% - will await official read -Will continue to monitor maternal and VS closely - if clinical picture worsens will initiate mIOL #GBS Unknown -Aware - will ensure follow-up in clinic if DC'd today #Varicella Nonimmune -Aware - will recommend initiation of vaccine series PP #Iron deficiency anemia -H.9 / Hct: 33.3 -Will continue home iron supplements and PNV #Ecoli Bacteruria -Completed treatment with no reported symptoms -Will continue to monitor PCP: PNC (João) Code: Full Diet: NPO Activity: Ad tom VTE PPx: None - Patient is at low risk for VTE IVF: LR @ 125 ml/hr Dispo: Patient is currently stable and admitted to L&D for ongoing monitoring and evaluation of suspected Oligohydramnios with Non-Reassuring BPP. Unofficial reads of BPP and Growth US are reassuring, but will await official reads as per above and continue steroid series for lung maturity if possible. Following receipt of official reads, will discuss case in detail with [facility] in order to establish appropriate pathway forward. Expected LOS < 24H. Discussion: Date/Time: 09/03/20 0722 This H&P was discussed with [] and [] who agree with the above documentation and plan. Addendum - Attending - Attending Attestation Date/Time: 09/03/20 3548 I personally evaluated the patient and discussed the management with Dr. Padilla. I agree with the History, Examination, Assessment and Plan documented above with any addition or exceptions noted below. Spoke with MFM at length this morning. States repeat BPP does not change his management and still recommends steroids and proceeding with delivery after 2nd dose completed. Explained this to the patient and her with help of a door clamper. We will give her a diet to day and make her NPO at noon tomorrow with plan to start IOL tomorrow afternoon. Collecting GBS culture today since unknown.
[2020-09-03 08:11] VITALS: BMI 20.7
[2020-09-03] MEDS: Lactated Ringer's 1,000 ML IV SCH ×2 (16:14→16:15)
--- NOTE | 2020-09-03 18:39 | PDOC.LDPN ---
Labor & Delivery Progress Note - Subjective Subjective: comfortable - Objective Vital signs reviewed and normal: yes General: NAD, resting, breathing through contractions Dilation: 3 Effacement: 75% Station: -1 FHT: category 1, acceleration absent, variability present [place] contractions every: 3-5min Plan: continue plan of care -: Patient is a 24yp @ 36.3W EGA by 20.3W US who presented after being sent over from [facility] due to oligohydramnios and nonreassuring BPP. #sIUP, Oligohydramnios and Nonreassuring BPP resolved -Initially followed by [facility] due to US 08/20 demonstrating a Hadlock of 3.1% -JOSE initially reported as 3 at [facility] on 09/02, with a BPP of 2/8 -Repeated BPP & Growth due to not having [facility] report: BPP 04/11, vertex, anterior placenta, no previa, JOSE 10.8cm, HR 140bpm -During initial evaluation, FHTs were 140s with Cat 1 Strip for >1H w/ accels present and no reported decels -S/p 1st dose of Betamethasone for lung maturity - 2nd dose planned for later this evening (2200) -paged by L&D 09/03 @ 0601 that patient started feeling contractions, no SROM, put back on monitor -Cat I strip, FHTs 140, + accels, no decels, noam every 2-4 minutes -/-1 @ 0630 -continue monitoring, recheck in 4 hours #GBS Unknown -ordered today #Varicella Nonimmune -Aware - will recommend initiation of vaccine series PP #Iron deficiency anemia -H.9 / Hct: 33.3 -Will continue home iron supplements and PNV #Ecoli Bacteruria -Completed treatment with no reported symptoms -Will continue to monitor PCP: PNC (João) Code: Full Diet: NPO Activity: Ad tom VTE PPx: None - Patient is at low risk for VTE IVF: SL
[2020-09-03] MEDS: Betamet Acet/Betamet Na Ph 30 MG/5 ML VIAL IM SCH (21:57)
--- NOTE | 2020-09-04 03:02 | PDOC.LDPN ---
Labor & Delivery Progress Note - Subjective Subjective: comfortable - Objective Vital signs reviewed and normal: yes General: NAD, resting FHT: category 1 (+ accels), variability present [place] contractions every: 10-12 min -: Patient is a 24yp @ 36.3W EGA by 20.3W US who presented after being sent over from [facility] due to oligohydramnios and nonreassuring BPP. 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 tomorrow afternoon (09/04) -paged by L&D 09/03 @ [id number] 09/03 that patient started feeling contractions, no SROM, put back on monitor -Cat I strip, FHTs 140, + accels, no decels, noam every 2-4 minutes -/-1 @ 0630 -Recheck 4 hours later, Cat I strip, FHTs 140, + accels, no decels, contractions spaced out to q10 min -Due to contraction spacing out, will recheck her in the morning, resume intermittent monitoring #GBS Unknown -ordered 09/03 #Varicella Nonimmune -Aware - will recommend initiation of vaccine series PP #Iron deficiency anemia -H.9 / Hct: 33.3 -Will continue home iron supplements and PNV #Ecoli Bacteruria -Completed treatment with no reported symptoms -Will continue to monitor PCP: PNC (João) Code: Full Diet: NPO Activity: Ad tom VTE PPx: None - Patient is at low risk for VTE IVF: SL
[2020-09-04 05:52] LABS: SARS-CoV-2 MS2 Positive; SARS-CoV-2 N Gene Negative; SARS-CoV-2 S Gene Negative; SARS-CoV-2 by NAA Not Detected (NotDetected); SARS-CoV-2 orf1ab Negative
--- NOTE | 2020-09-04 06:59 | PDOC.OBAPN ---
FMR OB AP PN: Sub - Interval History Hospital Day: 2 Chief Complaint: Oligohydramnios and Non-Reassuring BPP Indentification: @ 36.4W EGA by 20.3W US Interval History: CTX, resolved FMR OB AP PN: Obj - Maternal Vital signs: BP: [103/53] HR: [85] RR: [] Tmax: [] Pox: []% on [Room Air] Wt: [43.5 kg] - Heart Tones [place] contractions every: Irregular FMR OB AP PN: Exam - Physical Exam General: NAD, awake, alert and oriented HEENT: normocephalic and atraumatic, PERRLA, EOMI, MMM, conjunctiva clear, no scleral icterus, grossly normal vision, grossly normal hearing, oropharynx clear Neck: supple, FROM, trachea midline, no LAD Chest: non-tender to palpation Breast: symmetric Heart: RRR, normal S1/S2, no murmurs/rubs/gallops, pulses present, no edema General: CTAB, no respiratory distress, good air movement, no rales/rhonchi, no wheezing, no retractions Abdomen: gravid, non-tender, bowel sound present Musculoskeletal: FROM in all four extremities Neurological: no focal deficit Lymphatic: no LAD Psychiatric: intact recent and remote memory, good judgement and insight, normal mood and affect - Pelvic Exam SVE: Deferred FMR OB AP PN: Data - Labs Lab results: Laboratory Results - last 24 hr 09/03/20 22:06 SARS-CoV-2 (PCR) Not Detected FMR OB AP PN: A/P - Problem List (1) Current Visit: No Status: Acute Disposition: Patient is a 24 y/o female @ 36.4W EGA by 20.3W US who presented to L&D after evaluation by [facility] and concern for Olighoydramnios and non-reassuring BPP. #Oligohydramnios, Non-Reassuring BPP, sIUP -JOSE initially reported as 3 at [facility] on 09/02, with a BPP of 2/8 -Initially followed by [facility] due to US 08/20 demonstrating a Hadlock of 3.1% -During initial evaluation, FHTs were 140s with Cat 1 Strip for >1H w/ accels present and no reported decels -s/p Betamethasone x2 for lung maturity -Repeat BPP: 88 w/ JOSE of 10.8 -Repeat Hadlock: 34% -MFM: Repeat imaging does not change plan of care - will initiation mIOL on 09/04 -Per Resident Night Team, patient began to experience CTX Q2-4M on 09/03 w/ Cat 1 Strip and acels noted, although CTX eventually spaced out to > Q10M -SVE (629): /-1 -Will continue to monitor maternal and VS closely and will repeat SVE prior to mIOL #GBS Unknown -Cx: Pending #Varicella Nonimmune -Aware - will recommend initiation of vaccine series PP #Iron deficiency anemia -H.9 / Hct: 33.3 -Will continue home iron supplements and PNV #Ecoli Bacteruria -Completed treatment with no reported symptoms -Will continue to monitor PCP: [facility] (João) Code: Full Diet: Regular - NPO after 1200 Activity: Ad tom VTE PPx: None - Patient is at low risk for VTE IVF: None Dispo: Patient is currently stable and admitted to L&D for ongoing monitoring and evaluation of suspected Oligohydramnios with Non-Reassuring BPP. Will plan for repeat SVE @ 1030 this AM and will likely initiate mIOL later in the day, per [facility] recs. Expected LOS > 48H. Discussion: Date/Time: 09/04/20 0656 This H&P was discussed with [] and [] who agree with the above documentation and plan. Addendum - Attending - Attending Attestation Date/Time: 09/04/20 1046 I personally evaluated the patient and discussed the management with Dr. Padilla. I agree with the History, Examination, Assessment and Plan documented above with any addition or exceptions noted below. Plan to start IOL tonight at 1999 which will be 48 hr S/P steroids. PCN for GBS ppx since unknown. patient has snyder score of at least 6 so will use pitocin. NPO (sips/chips) at 1500. monitoring reassuring.
[2020-09-04] MEDS ORDERED: Ferrous Sulfate 325 MG TAB PO SCH (08:00)
[2020-09-04] MEDS ORDERED: Prenatal Vitamin 1 TAB PO SCH (09:00)
[2020-09-04] MEDS ORDERED: Ibuprofen 800 MG TAB PO PRN (15:33)
[2020-09-04] MEDS ORDERED: Lidocaine 1% (PF) 30 ML VIAL SC PRN (15:33)
[2020-09-04] MEDS ORDERED: NS w/ Oxytocin 30 units 500 ML IVPB PRN (15:57)
[2020-09-04 17:24] LABS: Hemoglobin 10.9 g/dL (12.0-16.0); Mean Corpuscular HGB CONC 33.1 g/dL (32.0-36.0); Mean Corpuscular Volume 87.7 fL (78.0-98.0); Mean Platelet Volume 7.5 fL (7.4-10.4); Platelet Count 250 thou/uL (130-400); RBC Distribution Width 13.5 % (11.5-14.5); Red Blood Cell (RBC) Count 3.76 mill/uL (4.20-5.40); White Blood Cell (WBC) Count 6.5 thou/uL (4.8-10.8)
[2020-09-04] MEDS: Lactated Ringer's 1,000 ML IV SCH ×2 (19:01→19:02)
[2020-09-04] MEDS ORDERED: Penicillin G Potassium 5 MILL.UNITS in Sodium Chloride 0.9% 100 ML IVPB SCH (22:00)
[2020-09-04] MEDS: NS w/ Oxytocin 30 units 500 ML IVPB SCH (23:38)
--- NOTE | 2020-09-04 23:40 | PDOC.LDPN ---
Labor & Delivery Progress Note - Subjective Subjective: comfortable - Objective Vital signs reviewed and normal: yes General: NAD, resting Dilation: 2 Effacement: 75% Station: -2 FHT: category 1 Ramirez-Perez contractions every: absent -: Patient is a 24 y/o female @ 36.4W EGA by 20.3W US who is a dmitted for mIOL 2/ to concerns for Olighoydramnios and non-reassuring BPP found by MFM #sIUP, Oligohydramnios and Nonreassuring BPP, induction of labor -Initially followed by MFM due to US 08/20 demonstrating a Hadlock of 3.1% -JOSE initially reported as 3 at [facility] on 09/02, with a BPP of 10/12 -Repeated BPP & Growth due to not having MFM report: BPP 04/11, vertex, anterior placenta, no previa, JOSE 10.8cm, HR 140bpm -During initial evaluation, FHTs were 140s with Cat 1 Strip for >1H w/ accels present and no reported decels -S/p 2 doses of Betamethasone for lung maturity -Spoke w/ MFM, New BPP does not acid changer still recommends proceeding with IOL -SVE: 2/-2 @ 2315, Dietz: 7, pit and pcn started -Cat I strip, FHTs 140, + accels, no decels -Ramirez-Perez: absent #GBS Unknown -starting PCN with pit #Varicella Nonimmune -Aware - will recommend initiation of vaccine series PP #Iron deficiency anemia -H.9 / Hct: 33.3 -Will continue home iron supplements and PNV #Ecoli Bacteruria -Completed treatment with no reported symptoms -Will continue to monitor Plan: induction of labor with pit, will continue to monitor and recheck in 4 hours
[2020-09-05] MEDS: Penicillin G 2.5 MILL.units 2.5 MILL.UNITS in Premix Bag 1 BAG IVPB SCH ×2 (03:10→07:58)
--- NOTE | 2020-09-05 03:59 | PDOC.LDPN ---
Labor & Delivery Progress Note - Subjective Subjective: painful contractions - Objective Vital signs reviewed and normal: yes General: resting, breathing through contractions Dilation: 3 Effacement: 75% Station: -2 FHT: category 1 [place] contractions every: 2-4 -: Patient is a 24 y/o female @ 36.5W EGA by 20.3W US who is admitted for mIOL 10/06 to concerns for Olighoydramnios and non-reassuring BPP found by MFM #sIUP, Oligohydramnios and Nonreassuring BPP, mIOL -Initially followed by MFM due to US 08/20 demonstrating a Hadlock of 3.1% -JOSE initially reported as 3 at [facility] on 09/02, with a BPP of 10/12 -Repeated BPP & Growth due to not having MFM report: BPP 04/11, vertex, anterior placenta, no previa, JOSE 10.8cm, HR 140bpm -During initial evaluation, FHTs were 140s with Cat 1 Strip for >1H w/ accels present and no reported decels -S/p 2 doses of Betamethasone for lung maturity -Spoke w/ MFM, New BPP does not change management analyst still recommends proceeding with IOL -SVE: /-2 @ 2315, Dietz: 7, pit and pcn started /-2 @ 0400, pit at 10 -Cat I strip, FHTs 130 -[place]: q2-4 min -desires epidural #GBS Unknown -received PCNx1, 2nd bag currently running #Varicella Nonimmune -Aware - will recommend initiation of vaccine series PP #Iron deficiency anemia -H.9 / Hct: 33.3 -Will continue home iron supplements and PNV #Ecoli Bacteruria -Completed treatment with no reported symptoms -Will continue to monitor Plan: continue induction of labor with pit, will continue to monitor and recheck in 4 hours
[2020-09-05] MEDS ORDERED: Fentanyl 4 mcg/Bup 0.1% Cadd 100 ML ONE (04:16)
[2020-09-05] MEDS: Lactated Ringer's 1,000 ML IV SCH ×2 (04:52→07:58)
[2020-09-05] MEDS ORDERED: Naloxone HCl 0.4 mg/ml Vial IVP PRN ×2 (04:56)
[2020-09-05] MEDS ORDERED: Ondansetron PF 4 MG/2 ML Vial IVP PRN ×2 (04:56→07:59)
[2020-09-05] MEDS ORDERED: Acetaminophen 325 MG TAB PO PRN (04:56)
[2020-09-05] MEDS ORDERED: diphenhydrAMINE 50 MG/ML VIAL IVP PRN (04:56)
[2020-09-05] MEDS ORDERED: ePHEDrine 50 MG/ML VIAL SLOW IVP PRN (04:56)
[2020-09-05] MEDS ORDERED: Promethazine HCl 25 MG/ML VIAL IM PRN ×2 (04:56→07:59)
[2020-09-05] MEDS ORDERED: Lactated Ringer's 500 ML IV PRN (04:56)
[2020-09-05] MEDS ORDERED: Fentanyl 4 mcg/Bupivacaine 0.1% Cassette 100 ML EPIDURAL SCH (05:00)
[2020-09-05] MEDS ORDERED: Communication Order-Pharmacy FS SCH (05:00)
[2020-09-05] MEDS ORDERED: Misoprostol 200 MCG TAB ONE (07:29)
[2020-09-05] MEDS ORDERED: Methylergonovine 0.2 MG TAB ONE (07:29)
[2020-09-05 07:41] LABS: Analyzer IN Cardio OR
[2020-09-05 07:42] LABS: Actual Bicarbonate (HCO3v) 18 mEq/L (22-28); Base Excess -8.8 mEq/L (-2.0 to +3.0); pH (Cord, venous) 7.24 (7.32-7.43)
[2020-09-05 07:43] LABS: Analyzer IN Cardio OR; Base Excess (BEa) -8.9 mEq/L (-2.0 to +3.0)
[2020-09-05] MEDS ORDERED: Bisacodyl 10 MG SUPP PR PRN (07:59)
[2020-09-05] MEDS ORDERED: Preparation H Ointment 28 GM TUBE PR PRN (07:59)
[2020-09-05] MEDS ORDERED: hydrALAZINE 20 MG/ML VIAL SLOW IVP PRN (07:59)
[2020-09-05] MEDS ORDERED: Lanolin Ointment 7 GM TUBE TOP PRN (07:59)
[2020-09-05] MEDS ORDERED: Milk Of Magnesia 30 ML UDCUP PO PRN (07:59)
[2020-09-05] MEDS ORDERED: Adacel (T-DAP) 0.5 ML SYRINGE IM ONE (07:59)
[2020-09-05] MEDS ORDERED: diphenhydrAMINE 25 MG CAP PO PRN (07:59)
[2020-09-05] MEDS ORDERED: NS / Oxytocin 40 units/1000ml 1,000 ML IV SCH (07:59)
[2020-09-05] MEDS ORDERED: Methylergonovine 0.2 MG/ML VIAL IM PRN (08:06)
[2020-09-05] MEDS ORDERED: Misoprostol 200 MCG TAB PR PRN (08:06)
--- NOTE | 2020-09-05 08:18 | DN ---
DATE OF PROCEDURE: 09/05/2020 SURGEON: Camilo Kumar MD MD PHYSICIAN DERMATOLOGIST: Bushra Wan MD. PROCEDURE PERFORMED: Vacuum-assisted vaginal delivery. ANESTHESIA: Epidural. ESTIMATED BLOOD LOSS: 50 mL. TIME OF : 0654. PRE DELIVERY DIAGNOSES: 1. intrauterine at 36 weeks and 5 days. 2. Oligohydramnios. 3. Prior vaginal delivery x2. 4. GBS unknown. 5. Varicella nonimmune. 6. Incomplete care. 7. Transfer care from [facility]. 8. Iron deficiency anemia. POST DELIVERY DIAGNOSES: 1. intrauterine at 36 weeks and 5 days, delivered status post 48 hours of betamethasone. 2. Oligohydramnios. 3. Prior vaginal delivery. 4. GBS unknown. 5. Varicella nonimmune. 6. Incomplete care. 7. Transfer care from [facility]. 8. Iron deficiency anemia. INDICATIONS: Ms. Flores is a pleasant 24-year-old, 3, para 2-0-0-2, who was sent to the hospital for steroids for lung maturity after being found to have oligohydramnios with an JOSE of 3 and a BPP of 2/8 at [facility]'s office. [facility] recommended that as long as the baby had reassuring status on the heart monitor to proceed with a total of 48 hours of steroids before proceeding with induction of labor. The patient was able to successfully receive 2 doses of IM betamethasone and the infant received a full 48 hours of pre delivery steroid treatment. Induction was started on the evening of 09/04/2020, for the aforementioned oligohydramnios. PROCEDURE IN DETAIL: After an course that was remarkable for the aforementioned oligohydramnios and recurrent heart deceleration with contractions and prolonged recovery immediately prior to delivery, the decision was made to proceed with vacuum-assisted vaginal delivery. Risks, benefits, and alternatives were explained to the parents, unfortunately without the use of sql manager due to issues with obtaining a sql manager at the time of delivery and need for urgent delivery. was noted to be in the occiput posterior position. The vacuum was placed over the flexion point and was brought to the yellow level on the vacuum device. With the next contraction, the vacuum was brought up to the green level and the was successfully delivered with 3 maternal pushes. The was noted to still be in the occiput posterior position and the perineum was intact. The vacuum was taken down and the vacuum cap was discarded. Total vacuum time < 30 seconds Nuchal cord x2 was noted to be present and delivered through. The cord was immediately cut and clamped and the infant was taken to the awaiting resuscitative team. Cord gas segment was obtained and is being run at this time. Cord blood was also obtained for routine analysis. Placenta was delivered intact in the Gonzáles presentation. The cervix and vagina were inspected and there was a small skin abrasion on the perineum overlying the region of a previous scar. Bimanual massage was performed and the fundus was noted to be firm. The patient and the did well and both went to or the nursery respectively for routine care and recovery. FINDINGS: 1. Grossly normal viable female infant who appears to be appropriate weight for gestational age, born at 0654 hours with Apgars of 8 and 9 at 1 and 5 minutes respectively. 2. Intact placenta with 3-vessel cord and a small area of presumed abruption representing approximately 10% of the total placental surface. Placenta was sent to Pathology. 3. Cord gas analysis, which the results are still pending at this time. Job ID: [id number] [facility]
[2020-09-05] MEDS: Ibuprofen 800 MG TAB PO SCH ×3 (10:19→21:10)
[2020-09-05] MEDS: Docusate Calcium (SURFAK) 240 MG CAP PO SCH ×2 (10:19→21:10)
[2020-09-05] MEDS: NS w/ Oxytocin 30 units 500 ML IVPB SCH (10:20)
[2020-09-05] MEDS: Prenatal Vitamin 1 TAB PO SCH (10:20)
[2020-09-05] MEDS: Ferrous Sulfate 325 MG TAB PO SCH ×2 (10:20→16:49)
[2020-09-05] MEDS ORDERED: Varicella virus, LIVE 0.5 ML VIAL SC ONE (14:00)
[2020-09-06] MEDS: Ibuprofen 800 MG TAB PO SCH ×2 (05:50→13:38)
--- NOTE | 2020-09-06 06:39 | PDOC.OBPPN ---
FMR OB PN: Subj - Interval History Hospital Day: 4 Day: 1 Chief Complaint: Oligo Interval History: No complaints, minimal lochia, no pain FMR OB PN: Obj - Maternal Vital signs: BP: 114/68 HR: 64 RR: 20 Tmax: 97.9 Pox: 100% on RA Wt: 44kg - Urine output I&O: 09/04/20 09/05/20 09/06/20 06:59 06:59 06:59 Output Total 1179 Balance -1179 - Lochia Lochia: minimal - same as period - Pain Management Pain scale: 0 Intervention: oral medication (ibuprofen) FMR OB PN: Exam - Physical Exam General: NAD HEENT: normocephalic and atraumatic, grossly normal vision, grossly normal hearing Neck: FROM Heart: RRR, normal S1/S2 General: CTAB, no respiratory distress Abdomen: soft, fundus(cm) (firm, below level of umbilicus) Musculoskeletal: FROM in all four extremities Neurological: no focal deficit Skin: no rash Lymphatic: no unusual bruising or bleeding Psychiatric: intact recent and remote memory, good judgement and insight, normal mood and affect - Pelvic Exam : non-tender, no discharge, normal lochia FMR OB PN: Data - Labs Lab results: Laboratory Results - last 24 hr 09/05/20 09/05/20 07:15 07:15 Bicarbonate Actual 19.0 L ABG Base Excess -8.9 L VBG HCO3 18 L VBG Base Excess -8.8 L Cord ABG pH 7.217 L Cord ABG PCO2 (Anastacio) 47.7 Cord VBG pH 7.24 L* Cord VBG pCO2 43.3 FMR OB PN: A/P Discussion: Date/Time: 09/06/20637 Patient is a 24 y/o female @ 36.5W EGA by 20.3W US who is admitted for mIOL 10/06 to concerns for Olighoydramnios and non-reassuring BPP found by MFM #PPD #1 follwing VAVD at 065 on 09/05/2020 of PTAGA F at 36.5wks -Pain well-controlled on ibuprofen -Lochia, same as period -Desires nexplanon for control #GBS Unknown -received PCNx2 #Varicella Nonimmune -Received vaccine #Iron deficiency anemia -H.9 / Hct: 33.3 -Will continue home iron supplements and PNV #Ecoli Bacteruria -Completed treatment with no reported symptoms -Will continue to monitor Plan: Possible home today pending baby's blood work and evaluation Addendum - Attending - Attending Attestation Date/Time: 09/06/20 1046 I personally evaluated the patient and discussed the management with Dr. Landaverde. I agree with the History, Examination, Assessment and Plan documented above with any addition or exceptions noted below. Keeping baby today since premature and HIR bili. Mom will stay. anticipate d/c in AM.
[2020-09-06] MEDS: Ferrous Sulfate 325 MG TAB PO SCH ×2 (07:22→16:11)
[2020-09-06] MEDS: Prenatal Vitamin 1 TAB PO SCH (09:44)
[2020-09-06] MEDS: Docusate Calcium (SURFAK) 240 MG CAP PO SCH ×2 (09:45→22:23)
[2020-09-07] MEDS: Ibuprofen 800 MG TAB PO SCH ×2 (06:56→08:17)
--- NOTE | 2020-09-07 07:13 | PDOC.PP ---
Post Progress Note Post Day #: 2 Subjective: Patient is doing well this morning. She denies any pain and says her bleeding is less than her period. She has no concerns or complaints and desires nexplanon for contraception. Of note, nursing felt they were having a miscommunication concerning the frequency of feedings for baby due to a language barrier - however they explained in detail with the data architect manager and she understood. PO intake tolerated: yes Flatus: yes Ambulation: yes Vital Signs (12 hours) Temp Pulse Resp BP Pulse Ox 09/06/20 20:00 98.1 F 73 18 126/60 100 Weight Weight 43.545 kg - Physical Examination General: NAD Cardiovascular: no m/r/g, RRR Respiratory: clear to auscultation bilaterally, non-labored breathing Abdominal: + bowel sounds, lochia, no distention, appropriately TTP Fundus firm & at: below umbilicus Neurological: no gross focal deficits Psychiatric: A&Ox3, normal affect Result Diagrams: 09/04/20 17:13 Additional Labs: Post Labs Hep Bs Antigen Non-Reactive S/CO (NonReactive) 09/02/20 22:12 Blood Type O POSITIVE 09/02/20 23:40 - Assessment/Plan Patient is a 24 y/o female @ 36.5W EGA by 20.3W US who is admitted for mIOL 10/06 to concerns for Olighoydramnios and non-reassuring BPP found by MFM #PPD #2 follwing VAVD at 065 on 09/05/2020 of PTAGA F at 36.5wks -Pain well-controlled on ibuprofen -Lochia, less than period -Desires nexplanon for control #GBS Unknown -received PCNx2 #Varicella Nonimmune -Received vaccine #Iron deficiency anemia -H.9 / Hct: 33.3 -Will continue home iron supplements and PNV #Ecoli Bacteruria -Completed treatment with no reported symptoms -Will continue to monitor Plan: Discharge home today
[2020-09-07 08:13] VITALS: BP 121/79; TEMP 98.7
[2020-09-07] MEDS: Docusate Calcium (SURFAK) 240 MG CAP PO SCH (08:17)
[2020-09-07] MEDS: Prenatal Vitamin 1 TAB PO SCH (08:17)
[2020-09-07] MEDS: Ferrous Sulfate 325 MG TAB PO SCH (08:19)
--- NOTE | 2020-09-09 07:09 | PQF ---
CLINICAL DOCUMENTATION CLARIFICATION FORM: Dear : Camilo Kumar Date / Time: 09/09/20707 Please exercise your independent, professional judgment in responding to the clarification form. Clinical indicators are provided on the bottom of this form for your review Final Diagnosis on the Pathology report: Stage I Chorioamnionitis Please check appropriate box(es): [ ] Agree w the pathology finding of: Chorioamnionitis [ ] Other explanation of pathology findings (please specify) [ X ] Other diagnosis, please specify: Pathological signs of chorioamnionitis without clinical features chorioamnionitis, may be due to partial abruption. [ ] Unable to determine Physician Signature: Date/Time: For continuity of documentation, please document condition throughout progress notes and discharge summary. Thank You. To be completed by CDI/Coding staff for physician review: Present Clinical Indicators - Signs / Symptoms / Labs Results and Location in Medical Record [x] Findings: Stage I Chorioamnionitis Path report 09/07 [x] BP 107/57, Pulse 79, Resp 16, Temp 98.2 Vital signs 09/05 [x] Intact placenta with 3 vessel cord and small area of presumed abruption representing approximately 10% of total placental surface Delivery note p1 09/05 Dr Kumar [x] WBC: 09/02=-6.4 09/04=6.5 Laboratory 09/02 Present Risk Factors Results and Location in Medical Record [x] IUP 36 weeks Delivery note p1 09/05 Dr Kumar [x] Oligohydramios Delivery note p1 09/05 Dr Kumar [x] Iron deficiency Anemia Delivery note p1 09/05 Dr Kumar [x] s/p Vacuum-assistent vaginal delivery Delivery note p1 09/05 Dr Kumar Present Treatments Results and Location in Medical Record [x] IV Lactated Ringers 1L NOV 13 [x] I V Pen G 5 mill/units NOV 02 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
--- NOTE | 2020-09-09 11:06 | ULT ---
LIMITED OB ULTRASOUND BIOPHYSICAL PROFILE: PROVIDED CLINICAL HISTORY: Oligohydramnios. FINDINGS: Comparison 08/29/2020. Single live intrauterine gestation is redemonstrated in vertex presentation. The placenta is anteriorly located without evidence for previa. Amniotic fluid index is 10.8. Feta l heart rate of 140 b.p.m. is documented. Estimated weight is 2397 +/- 355 gm. Estimated gest ational age based on today's examination is 34 weeks 2 days. tone: 2/2. breathin/2. movements: 2/2. Amniotic fluid: 2/2. Total: 8/8. IMPRESSION: Normal biophysical profile.
== END 2020-09-07 13:55 | disposition home or self-care (01) | DRG 806 ==
LOC: L&D/OP 20:08 → L&D-LIB 09-03 10:28 → 3SW 09-05 11:40
PROVIDERS: ADMIT Family Medicine; ATTEND Family Medicine
PROC: 3E033VJ Introduction of Other Hormone into Peripheral Vein, Percutaneous Approach (ICD-10-PCS; 2020-09-03)
PROC: 10D07Z6 Extraction of Products of Conception, Vacuum, Via Natural or Artificial Opening (ICD-10-PCS; principal; 2020-09-05)
DX: O76 Abnormality in fetal heart rate and rhythm complicating labor and delivery (principal); O41.03X0 Oligohydramnios, third trimester, not applicable or unspecified; Z37.0 Single live birth; Z3A.36 36 weeks gestation of pregnancy; Z23 Encounter for immunization; Z20.828 Contact with and (suspected) exposure to other viral communicable diseases; O99.02 Anemia complicating childbirth; D50.9 Iron deficiency anemia, unspecified; R82.71 Bacteriuria; Z79.899 Other long term (current) drug therapy
CPT/HCPCS: 36415; 51702; 76816; 76819; 82805; 85027; 86780; 86850; 86900; 86901; 87081; 87340; 87635; 88307; 99285; J0702; J2210; J2540; J2590; J3490; U0003